=== PATIENT | female | born 2000 | race African-American/Black ===

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

== ENCOUNTER 2025-02-28 08:28 | Emergency (ER) | payer MEDICAID, SELFPAY ==
--- NOTE | ~2025-02-28 | US_ITS ---
EXAMINATION: US pelvic complete w TV, 02/28/2025 11:48 CDT HISTORY: abnormal CT, abdominal pain Comparison: Comparison CT previously obtained. Technique: Holloway-scale and color Doppler images were obtained. Findings: Uterus: Uterus anteverted 8.6 x 3.7 x 5.8 cm. . Endometrium measures 9 mm with a heterogeneous appearance. Right Ovary:Right ovary 2 x 2 0.8 x 1 x 1.7 cm, no adnexal mass, normal flow. Left Ovary: Left ovary 2.3 x 1.7 x 1.4 cm, no adnexal mass, normal flow. Free Fluid: Minimal free fluid. Incidental debris noted within the bladder, correlate with symptoms of cystitis. Impression: 1. Nonspecific heterogeneity of the endometrium. Six-week follow-up recommended to assess. Reviewed, dictated and finalized at location P. Impression: 1. Nonspecific heterogeneity of the endometrium. Six-week follow-up recommended to assess.
--- NOTE | ~2025-02-28 | CT_ITS ---
Exam: CT abdomen and pelvis with contrast Clinical History: [Abdominal pain. Vomiting. Elevated lipase ] Comparison: [ None available] Technique: Multiple axial CT images of the abdomen and pelvis were obtained with IV contrast. Sagittal and coronal reformatted images were obtained. FINDINGS: Lung bases: [ ] Liver: [ No mass.] [ No intrahepatic biliary duct dilatation.] Gallbladder: [ No wall thickening or stones.] Common bile duct: [ Normal caliber.] [ No stones.] Spleen: [ Within normal limits.] Pancreas: [ No mass. No pancreatic fluid collection.] Adrenals: [ No masses.] Kidneys: [ No masses. No hydronephrosis.][ ] Lymph nodes: [ No adenopathy in the abdomen or pelvis.] Stomach, small bowel and colon: [ No bowel wall thickening or obstruction.] Moderate amount of stool. Peritoneum cavity: Small amount of fluid in the pelvis. Bladder: [ Unremarkable.] Osseous structures: [ No acute fracture or destructive lesion.] [ Abdominal aorta: [ No aneurysm.] Additional findings: There is a fluid in the endometrial canal. There is a 3.2 x 2.4 cm heterogeneous masslike structure in the lower uterine segment which extends into the cervical region. IMPRESSION: 1. There is a fluid in the endometrial canal. There is a 3.2 x 2.4 cm heterogeneous masslike structure in the lower uterine segment which extends into the cervical region. The masslike structure may represent heterogeneous tissue, however, a mass or infectious process are possible. A pelvic ultrasound is recommended for further assessment. Reviewed, dictated and finalized at location Q. IMPRESSION: 1. There is a fluid in the endometrial canal. There is a 3.2 x 2.4 cm heterogen eous masslike structure in the lower uterine segment which extends into the cer vical region. The masslike structure may represent heterogeneous tissue, howeve r, a mass or infectious process are possible. A pelvic ultrasound is recommende d for further assessment.
--- OUTSIDE RECORDS SUMMARY | 2025-02-28 08:32 | XMS_ITS | Clinical Summary ---
Author Organization [facility] [address] [place] [address] [address] [facility] [place] [address] Care Team Providers Care Employment Instructional Associate Name Role Phone Unavailable Primary Care Provider Unavailabl e Allergies Active Allergy Reactions Criticality Noted Date Comments Amoxicillin Unknown,Other (See Comments),Rash Medium 06/11/2014 Mom doesn't remember reaction. Medications glycopyrrolate (ROBINUL) 1 mg tablet Take 1 Tablet by mouth 2 times daily. 07/01/2024 Active venlafaxine (EFFEXOR XR) 75 mg Extended Release 24 hour capsule Take 75 mg by mouth daily. 06/24/2024 Active Hospital, Clinic, or Other Facility Administered Medication Ordered Dose Route Frequency Start Date End Date Status medroxyPROGESTERone (DEPO-PROVERA) 150 mg/mL injection 150 mgIndications:Encounter for initial prescription of injectable contraceptive 150 mg IM EVERY 90 DAYS 08/22/2024 Active Active Problems Problem Noted Date Diagnosed Date Moderate episode of recurrent major depressive d isorder 03/14/2024 Overview (08/22/2024): Uncontrolled. She had failed Lexaprol and Zoloft due to side effects. Start Pristiq 25mg daily. Follow up in 1 month to reassess. Intractable migraine without aura and with status migrainosus 08/28/2022 Excessive sweating 02/15/2021 Overview (08/22/2024): Last Assessment & Plan: Stable Cont robinul Generalized anxiety disorder 01/09/2021 Overview (08/22/2024): Last Assessment & Plan: Worsening Increase lexapro to 20mg daily Acne 06/11/2014 Overview (08/22/2024): onset age 12, mild comedonal, forehead only, untreated 06/11/14 rec topical benzoyl peroxide 09/17/14 BP not started after last visit. Comedones now involve FH, nose and cheeks; start clinda/BP gel 12/17/2014 using BP ( Generalized hyperhidrosis 06/11/2014 Overview (08/22/2024): onset age 8, onychophagia and traumatic lichenification (R 1st and 2nd digits), associated anxiety (not evaluated) 01/13/14 Rx Drysol qhs to axillae and hands (2 bottles/2 mo) 06/11/14 restart Drysol BID to axillae/palms/soles, under occlusion pending lab evaluation 09/17/14 S/P Drysol + 1 mg glycopyrrolate BID X 2 mo without improvement (worst at axillary > palms); dose escalation and optimal topical application reviewed 12/17/14 using Drysol QHS + 3 mg glycopyrrolate BID with control; cautioned RE:overheating Family history of hyperhidrosis Encounters Date Type Department Care Team Description 02/18/2025 External Device Data [facility]STRACTION Provider, Abstract 12/18/2024 External Device Data [facility] Provider, Abstract 12/17/2024 External Device Data [facility] Provider, Abstract from Last 3 Months Immunizations Immunization Administration Dates Next Due (ADACEL/BOOSTRIX)(10 YR UP) TDAP VACCINE, 0.5ML, IM 01/13/2014 (BEXSERO)(10-25 YR) MENINGOC OCCAL RECOMBIANT PROTEIN AND OUTER MEMBRANE VESICLE VACCINE, SEROGROUP B MENB-4C, 2 DOSE IM 03/30/2020,02/28/2020 (GARDASIL)(9-45 YRS) HUMAN PAPILLOMAVIRUS VACCINE, TYPES 6, 11, 16, 18, QUADRIVALENT (4VHPV), 3 DOSE, IM 07/25/2014,03/17/2014,01/13/2014 (HAVRIX/VAQTA)(12 MO-18 YRS) HEPATITIS A VACCINE 0.5 ML PED/ADOL 2 DOSE, IM 10/25/2007,12/24/2004 (INFANRIX)(6 WKS-6 YRS) DIPT HERIA, TETANUS TOXOIDS, AND ACCELLULAR PERTUSSIS VACCINE (DTAP), 0.5 ML IM 10/04/2007 (IPOL)(6 WKS AND UP) POLIOVI ANSHUL VACCINE, INACTIVATED (IPV), 3 DOSE, SUBCUT OR IM 10/04/2007 (KINRIX/QUADRACEL)(4 - 6 YRS ) DIPHTHERIA, TETANUS TOXOIDS AND ACELLULAR PERTUSSIS VACCINE, POLIO, INACTIVATED (DTAP-IPV) (PF) IM 10/04/2007,06/10/2003,03/10/2003,01/07 (M-M-R II/PRIORIX)(12 MO UP) MEASLES, MUMPS AND RUBELLA VIRUS VACCINE, 0.5 ML IM/SUBCUT 10/04/2007,03/18/2004 (MENACTRA)(9 MO-55 YR) MENIN GOCOCCAL POLYSACCHARIDE A, C, Y AND W-135 DIPTHERIA TOXOID CONJUGATE VACCINE, (PF), 0.5ML, IM 02/28/2020,01/13/2014 (PEDIARIX)(6 WKS-6 YRS) DIPT HERIA, TETANUS TOXOIDS, ACELLULAR PERTUSSIS, HEPATITIS B, AND INACTIVATED POLIOVIRUS VACCINE (GVPM-KDAL-JRN), 0.5ML, IM 06/10/2003,03/10/2003,01/07/2003 (PREVNAR 13)(6 WKS UP) PNEUM OCOCCAL CONJUGATE (PCV13) 0.5 ML, IM 03/18/2004 (RECOMBIVAX HB/ENGERIX-B)(0- 19 YRS) HEPATITIS B VACCINE 5 MCG/0.5 ML OR 10 MCG/0.5 ML PED OR ADOL 3 DOSE (PF), IM 06/10/2003,03/10/2003,01/07/2003,11/14 (VARIVAX)(12 MOS UP)VARICELL A VIRUS VACCINE (PF) 0.5 ML, SUB CUT 07/17/2012,03/18/2004 Diptheria, Tetanus Toxoids, And Whole Cell Pertussis Vaccine (DTP), for intramuscular use 12/24/2004 HIB, Unspecified Formulation 03/18/2004, 06/10/2003,03/10/2003,01/07 Hemophilus influenza b vacci ne (Hib), PRP-D conjugate, for booster use only, intramuscular use 03/18/2004 INFLUENZA VACCINE QUADRIVALE NT 6 MOS UP PF IM 03/12/2020,04/15/2015,03/17/2014,04/29 Influenza Seasonal Unspecifi ed Formulation PF IM 03/14/2024 Influenza Vaccine Quad Split 6-35 Mo Pf Im 04/19/2004,03/18/2004 Influenza Virus Vaccine, Spl it Virus (Incl. Purified Surface antigen)-retired CODE 03/18/2010,04/19/2004,03/18/2004 Influenza, Unspecified Formulation 03/05/2022, Pneumococcal 7-valent conjug ate vaccine IM 03/18/2004,06/10/2003,03/10/2003,01/07 Social History Tobacco Use Types Packs/Day Years Used Date Smoking Tobacco: Never Smokeless Tobacco: Never Tobacco Cessation:Counseling Given: Not Answered Alcohol Use Standard Drinks/Week Comments Yes 0 (1 standard drink = 0.6 oz pur e alcohol) Comments No Sex and Gender Information Value Date Recorded Sex Assigned at Not on file Legal Sex Female 10:20 AM CDT Gender Identity Not on file Sexual Orientation Not on file Last Filed Vital Signs Vital Sign Reading Time Taken Comments Blood Pressure 119/67 08/22/2024 1:55 PM CDT Pulse 79 08/22/2024 1:55 PM CDT Temperature 36.1 C (97 F) 08/22/2024 1:55 PM CDT Respiratory Rate 18 08/22/2024 1:55 PM CDT Oxygen Saturation 99% 08/22/2024 1:55 PM CDT Inhaled Oxygen Concentration - - Weight 57.6 kg (127 lb) 08/22/2024 1:55 PM CDT Height 162.6 cm (5' 4) 08/22/2024 1:55 PM CDT Body Mass Index 21.8 08/22/2024 1:55 PM CDT Plan of Treatment Health Maintenance Due Date Last Done Comments CHLAMYDIA SCREENING (ANNUAL) 11-24 YEARS 2013 HPV/Cotest (21-29) 11/11/2023 DTAP/TDAP/TD VACCINES (7 - T d or Tdap) 01/14/2024 01/13/2014, 10/04/2007, 10/04/2007, Additional history exists INFLUENZA VACCINE (#1) 2025 , 03/12/2020, 04/15/2015, Additional history exists COVID-19 Vaccine (2024-07 6 season) 2025 09/22/2020, 08/30/2020 CERVICAL CANCER SCREENING 08/23/2027 PAP SMEAR 08/23/2027 08/22/2024 HEPATITIS B VACCINES Completed 06/10/2003, 06/10/2003, 03/10/2003, Additional history exists HPV VACCINES Completed 07/25/2014, 03/05, 01/13/2014 Procedures Procedure Name Priority Date/Time Associated Diagnosis Comments CERV/VAG CYTO AGE BASED SCREEN PAP W CT/NG, TRICH Routine 08/22/2024 11:28 AM CDT Well woman exam with routine gynecological exam from Last 3 Months or Most Recently Relevant to Health Maintenance Results * CERV/VAG CYTO AGE BASED SCREEN PAP W CT/NG, TRICH (08/22/2024 11:28 AM CDT) PAP INTERP See Scanned Report 08/29/2024 8:58 AM CDT [facility] [employer] [facility] Genital SWAB OF ENDOCERVIX / Unknown Collection / Unknown 08/22/2024 11:28 AM CDT 08/23/2024 11:28 AM CDT Kristina Babin WINDSHIELD TECHNICIAN PATHOLOGY/CYTOLOGY ORD ERABLES Final Result [facility] [employer] [facility] [id number] [address] [place] [address] from Last 3 Months or Most Recently Relevant to Health Maintenance Insurance [facility] [employer] OF [facility] [place] [id number] [facility] [address] [facility] [id number]
--- OUTSIDE RECORDS SUMMARY | 2025-02-28 08:32 | XMS_ITS | Encounter Summary ---
Author Organization [facility] Address [address] [place] [address] Care Team Providers Care Nursing Scheduler Name Role Phone Brigid Mcknight MD Primary Care Provider [phone] Encounter Details Date Type Department Care Team (Late st Contact Info) Description 02/14/2025 Results Follow-Up [facility] Family Medicine [address] [place] [address] [place] [address] [place] [address] [address] [place] [address] Trichomonas vaginalis PCR Vaginal, N. gonorrhoeae/C. trachomatis Amplification Vaginal, Vaginitis panel Vaginal Social History Tobacco Use Types Packs/Day Years Used Date Smoking Tobacco: Never Smokeless Tobacco: Never Alcohol Use Standard Drinks/Week Comments Yes 0 (1 standard drink = 0.6 oz pur e alcohol) PHQ-2 Answer Date Recorded PHQ-2 Total Score (If total score is 3 or more points, staff should administer the PHQ-9) 3 02/13/2025 PHQ-9 Answer Date Recorded PHQ-9 Total Score 15 02/13/2025 AUDIT-C Answer Date Recorded Q1: How often do you have a drink containing alc ohol? Monthly or less 02/13/2025 Q2: How many drinks containi ng alcohol do you have on a typical day when you are drinking? 1 or 2 02/13/2025 Q3: How often do you have si x or more drinks on one occasion? Never 02/13/2025 Comments Unknown Sex and Gender Information Value Date Recorded Sex Assigned at Not on file Legal Sex Female 4:15 PM CARGO SERVICES COORDINATOR Gender Identity Not on file Sexual Orientation Not on file documented as of this encounter Ordered Prescriptions Prescription Sig Dispense Quantity Refills Last Filled Start Date End Date metroNIDAZOLE (FLAGYL) 500 mg tablet Take 1 tablet (500 mg total) by mouth 2 (two) times a day for 7 days 14 tablet 02/14/2025 02/21/2025 documented in this encounter Plan of Treatment Not on file documented as of this encounter Visit Diagnoses Not on filedocumented in this encounter Care Teams Nursing Scheduler Relationship Specialty Start Date End Date Brigid Mcknight MD PCP - General Family Medicine 01/04/21 documented as of this encounter
--- OUTSIDE RECORDS SUMMARY | 2025-02-28 08:32 | XMS_ITS | Clinical Summary ---
Author Organization [facility] Address [address] [place] [address] Care Team Providers Care Interior Systems Carpenter Name Role Phone Laury Ybarra MD Primary Care Provider [phone] Source Comments [facility],non-owned Affiliates and Associated Physician Practices is amultiple site organization consisting of ambulatory clinics and hospital sitesin [place], [place], [place] and [place]. This disclosure is being madepursuant to the Care Everywhere program and may not contain all information available regarding this patient. Last updated 18.[facility] Allergies Active Allergy Reactions Criticality Noted Date Comments Amoxicillin Other 06/11/2014 Mom doesn't remember reaction. Medications * Be aware that medications may not be up to date on this document. Alwaysverify current medications with the patient. albuterol (PROVENTIL;PAIGE TOLIN) (2.5 MG/3ML) 0.083% nebulizer solution Inhale by mouth 4 times daily as needed for Shortness of Breath or Wheezing. Active albuterol HFA (PROVENTIL;PAIGE TOLIN;PROAIR) 108 (90 BASE) MCG/ACT inhaler Inhale 2 Puffs by mouth every 6 hours as needed. Active cetirizine (ZYRTEC) 10 MG chew tablet Take 10 mg by mouth once daily. Active acetaminophen (TYLENOL) 325 MG tablet Take 325 mg by mouth every 4 hours as needed for Fever or Pain. Maximum allowable Acetaminophen amount = 4 Grams (4000 mg) / 24 hours. Active fluticasone hfa 110 (FLOVENT HFA 110) 110 MCG/ACT inhaler Inhale 2 Puffs by mouth 2 times daily Active Active Problems Problem Noted Date Diagnosed Date Generalized hyperhidrosis 06/11/2014 Overview (12/17/2014): onset age 8, onychophagia and traumatic lichenification [...] control; cautioned RE:overheating Family history of hyperhidrosis Acne 06/11/2014 Overview (12/17/2014): onset age 12, mild comedonal, forehead only, untreated 06/11/14 rec topical benzoyl peroxide 09/17/14 BP not started after last visit. Comedones now involve FH, nose and cheeks; start clinda/BP gel 12/17/2014 using BP ( Family History Medical History Relation Name Comments Other Father increased sweat ing Type 2 Diabetes Mellitus Maternal Aunt Type 2 Diabetes Mellitus Maternal Grandmother Birthmarks Mother Type 2 Diabetes Mellitus Mother Asthma Sister Relation Name Status Comments Father Maternal Aunt Maternal Grandmother Mother Sister Social History Tobacco Use Types Packs/Day Years Used Date Smoking Tobacco: Never Smokeless Tobacco: Never Comments No Sex and Gender Information Value Date Recorded Sex Assigned at Not on file Legal Sex Female 5:42 AM JORDAN MAN Gender Identity Not on file Sexual Orientation Not on file Last Filed Vital Signs Vital Sign Reading Time Taken Comments Blood Pressure 122/64 02/24/2020 2:08 PM CDT Pulse 94 02/24/2020 2:08 PM CDT Temperature 36.7 C (98.1 F) 02/24/2020 2:08 PM CDT Respiratory Rate 20 02/24/2020 2:08 PM CDT Oxygen Saturation 98% 02/24/2020 2:08 PM CDT Inhaled Oxygen Concentration - - Weight 60.3 kg (133 lb) 02/24/2020 2:08 PM CDT Height 170.2 cm (5' 7) 02/24/2020 2:08 PM CDT Body Mass Index 20.83 02/24/2020 2:08 PM CDT Plan of Treatment Health Maintenance Due Date Last Done Comments HIV SCREENING 2017 HPV VACCINE (1 - 3-dose series) 2017 CHLAMYDIA/GONORRHEA SCREENING 2018 MENINGOCOCCAL (Group B) VACC INE SHARED DECISION-MAKING (1 of 2 - Standard) 2018 HEPATITIS C SCREENING 11/05/2020 DTAP/TDAP/TD VACCINES (1 - Tdap) 2021 HEPATITIS B VACCINE (1 of 3 - 19+ 3-dose series) 2021 DEPRESSION SCREENING 06/05/2024 COVID-19 VACCINE (1 - 2023-2 5 season) 2025 INFLUENZA VACCINE (#1) 2025 ZOSTER VACCINE (1 of 2) 2052 HIB VACCINE Aged Out No longer eligi ble based on patient's age to complete this topic MENINGOCOCCAL GROUPS A/C/Y/W VACCINE Aged Out No longer eligible b ased on patient's age to complete this topic PNEUMOCOCCAL VACCINE Aged Out No long er eligible based on patient's age to complete this topic Insurance [facility] Care Teams Interior Systems Carpenter Relationship Specialty Start Date End Date Laury Ybarra MD [address] [place] [address] PCP - General 10/04/21
--- OUTSIDE RECORDS SUMMARY | 2025-02-28 08:32 | XMS_ITS | Clinical Summary ---
Author Organization [facility] Address [address] [place] [address] Care Team Providers Care Inside Tester Name Role Phone Brigid Mcknight MD Primary Care Provider [phone] Allergies Active Allergy Reactions Criticality Noted Date Comments Amoxicillin Rash Medium 01/09/2021 Medications Nurtec ODT tablet,disinteg ratingIndicatio ns:Migraine without aura and without status migrainosus, not intractable Take 1 tablet (75 mg total) by mouth every other day as needed (migraine) 8 tablet 5 3 Active albuterol HFA (PROVENTIL HFA,VENTOLIN HFA,PROAIR HFA) 90 mcg/actuation inhalerIndicati ons:Acute non-recurrent frontal sinusitis,Wheez ing Inhale 1-2 puffs every 6 (six) hours as needed for wheezing for up to 10 days 8 g 3 5 Active loratadine (CLARITIN) 10 mg tablet Take 1 tablet (10 mg total) by mouth daily as needed Active desvenlafaxine ER (PRISTIQ) 25 mg tablet extended release 24 hr 24 hr tabletIndicatio ns:major depressive disorder Take 1 tablet (25 mg total) by mouth daily 30 tablet 5 Active glycopyrrolate (ROBINUL) 1 mg tabletIndicatio ns:Excessive sweating Take 1 tablet (1 mg total) by mouth 2 (two) times a day 180 tablet 5 Active hydrOXYzine (ATARAX) 10 mg tabletIndicatio ns:Generalized anxiety disorder Take 1 tablet (10 mg total) by mouth daily as needed for itching 30 tablet 5 Active hydrOXYzine (ATARAX) 10 mg tabletIndicatio ns:Generalized anxiety disorder Take 1 tablet (10 mg total) by mouth daily as needed for itching 30 tablet 4 02/14/20 25 Discontinue d(Reorder) venlafaxine XR (EFFEXOR-XR) 75 mg 24 hr capsuleIndicati ons:Generalized anxiety disorder Take 1 capsule (75 mg total) by mouth daily Take with food. 90 capsule 4 5 02/14/20 25 Discontinue d(Alternate therapy) glycopyrrolate (ROBINUL) 1 mg tabletIndicatio ns:Excessive sweating Take 1 tablet (1 mg total) by mouth 2 (two) times a day 180 tablet 5 02/14/20 25 Discontinue d(Reorder) metroNIDAZOLE (FLAGYL) 500 mg tablet Take 1 tablet (500 mg total) by mouth 2 (two) times a day for 7 days 14 tablet 5 02/22/20 25 Active Problems Problem Noted Date Diagnosed Date Intractable migraine without aura and with status migrainosus 06/24/2024 Assessment & Plan (06/24/2024 12:21 PM CARDIOLOGY SPECIALIST): Chronic Stable Cont nurtec PRN Moderate episode of recurrent major depressive d isorder 03/14/2024 Overview (03/14/2024): Uncontrolled. She had failed Lexaprol and Zoloft due to side effects. Start Pristiq 25mg daily. Follow up in 1 month to reassess. Assessment & Plan (06/24/2024 12:26 PM CARDIOLOGY SPECIALIST): Chronic Improving Increase venlafaxine xr to 75mg daily Failed meds: zoloft, lexapro Excessive sweating 02/15/2021 Assessment & Plan (06/24/2024 12:20 PM CARDIOLOGY SPECIALIST): Chronic Stable Cont robinul Assessment & Plan (02/24/2022 6:18 AM CDT): Stable Cont robinul Assessment & Plan (12/16/2021 10:09 AM CDT): Stable Cont robinul Assessment & Plan (09/28/2021 1:28 PM CDT): Stable Cont robinul Assessment & Plan (02/23/2021 5:22 PM CDT): Chronic, uncontrolled Start robinul Generalized anxiety disorder 01/09/2021 Assessment & Plan (06/24/2024 12:21 PM CARDIOLOGY SPECIALIST): Chronic Improving Increase venlafasine to 75mg daily Failed meds: lexapro, zoloft Cont hydroxyzine prn Assessment & Plan (12/16/2021 10:08 AM CDT): Worsening Increase lexapro to 20mg daily Assessment & Plan (09/28/2021 1:28 PM CDT): Stable Cont lexapro Assessment & Plan (02/23/2021 5:22 PM CDT): Stable Cont lexapro Assessment & Plan (01/09/2021 10:23 AM CDT): Uncontrolled Start lexapro Resolved Problems Problem Noted Date Diagnosed Date Resolved Date Dizziness 12/16/2021 03/14/2024 Assessment & Plan (02/24/2022 6:18 AM CDT): Uncontrolled Start meclizine Start PT Nasal congestion 12/16/2021 03/14/2024 Nasal drainage 09/28/2021 03/14/2024 Assessment & Plan (09/28/2021 1:27 PM CDT): New Order flonase, singulair Encounters Date Type Department Care Team Description 02/14/2025 Results Follow-Up [facility] Family Medicine [address] [place] [address] [place] [id number] Tasneem Mccoy NP Trichomonas vaginalis PCR Vaginal, N. gonorrhoeae/C. trachomatis Amplification Vaginal, Vaginitis panel Vaginal 02/13/2025 4:27 PM CDT - 02/13/2025 11:59 PM CDT Hospital Encounter [facility] [address] [place] [address] Vaginal odor; Vaginal discharge Discharge Disposition: Discharge to home or self care 02/13/2025 9:30 AM CDT Office Visit [facility] Family Medicine [address] [facility] [address] [place] [address] Tasneem Mccoy NP Vaginal odor (Primary Dx); Vaginal discharge; Generalized anxiety disorder; Moderate episode of recurrent major depressive disorder (HCC); Excessive sweating; Generalized anxiety disorder; Chronic bilateral low back pain without sciatica; Chronic bilateral thoracic back pain; control counseling from Last 3 Months Immunizations Immunization Administration Dates Next Due DTP 12/24/2004 DTaP 10/04/2007 DTaP / Hep B / IPV 06/10/2003,03/10/2003, 003 DTaP / IPV 10/04/2007, 4,03/10/2003,01/07 HPV, Quadrivalent 07/25/2014,03/17/2014,01/14/20 14 Hep A, Pediatric 10/25/2007,12/24/2004 Hep A, Unspecified 12/24/2004 Hep B, Adolescent or Pediatric 4,03/10/2003,01/07/2003,11/14 HiB 03/18/2004, 4,03/10/2003,01/07 Hib (PRP-D) 03/18/2004 IPV 10/04/2007 Influenza, Quadrivalent, Spl it, Pediatric, Preservative Free, Intramuscular 04/19/2004,03/18/2004 Influenza, Quadrivalent, Spl it, Preservative Free, Intramuscular 03/12/2020,04/15/2015,03/17/2014,04/29 Influenza, Split 03/18/2010,04/19/2004, 4 Influenza, Trivalent, Preser vative Free, Intramuscular 03/14/2024 Influenza, Unspecified 03/05/2023(Deferr ed: Patient Refused),03/05/2022,03/05/2021 MMR 10/04/2007,03/18/2004 Meningococcal B, OMV (Bexsero) 03/30/2020,2019 Meningococcal MCV4P (Menactra) 02/28/2020,2013 Pfizer SARS-CoV-2 Monovalent Vaccination (12+ Yrs) PURPLE 09/22/2020,08/30/2020 Pneumococcal Conjugate 7-Valent 03/18/20 04,06/10/2003,03/10/2003,01/07 Pneumococcal Conjugate PCV 13 03/18/2004 Tdap 01/13/2014 Varicella 07/17/2012,03/18/2004 Surgical History Surgery Date Site/Laterality Comments FINGER SURGERY extra finger on both hands removed as baby Medical History Medical History Date Comments Depression Anxiety Family History Medical History Relation Name Comments Heart disease Father Martinez Reddy Diabetes Mother Elmira Brown Relation Name Status Comments Father Martinez Reddy Alive Mother Elmira Brown Alive Social History Tobacco Use Types Packs/Day Years [...] on file Legal Sex Female 4:15 PM CARDIOLOGY SPECIALIST Gender Identity Not on file Sexual Orientation Not on file Obstetrics History Last Filed Vital Signs Vital Sign Reading Time Taken Comments Blood Pressure 100/68 02/13/2025 9:18 AM CDT Pulse 89 02/13/2025 9:18 AM CDT Temperature 36.7 C (98 F) 02/13/2025 9:18 AM CDT Respiratory Rate 16 03/14/2024 12:52 PM CDT Oxygen Saturation 99% 02/13/2025 9:18 AM CDT Inhaled Oxygen Concentration - - Weight 57.2 kg (126 lb 3.2 oz) 02/13/2025 9:18 A M CDT Height 165.1 cm (5' 5) 02/13/2025 9:18 AM CDT Body Mass Index 21 02/13/2025 9:18 AM CDT Plan of Treatment Health Maintenance Due Date Last Done Comments Cervical Cancer Screening 2002 Hepatitis C Screening 2002 Pneumococcal vaccine <65 (1 of 1 - PPSV23, PCV20, or PCV21) 2008 03/18/2004, 03/18/2004, 06/10/2003, Additional history exists DTaP/Tdap/Td Vaccine (7 - Td or Tdap) 01/14/2024 01/13/2014, 10/04/2007, 10/04/2007, Additional history exists Covid-19 Vaccine (3 - 2024-2 6 season) 2025 09/22/2020, 08/30/2020 Influenza Vaccine (#1) 2025 , 03/05/2022, 03/05/2021, Additional history exists Regular Well Visit/Exam 18-64 03/14/2025 03/14/2024 Depression Screening 02/13/2026 02/13/2025, 02/13/2025, 03/14/2024, Additional history exists Hepatitis B Screening Completed 06/10/2003 , 06/10/2003, 03/10/2003, Additional history exists Varicella Vaccines Completed 07/17/2012, 03/18/2004 HPV Vaccines Completed 07/25/2014, 03/05, 01/13/2014 Meningococcal B Vaccine Completed 03/30/2020, 02/27 Procedures Procedure Name Priority Date/Time Associated Diagnosis Comments VAGINITIS PANEL Routine 02/13/2025 9:47 AM CDT Vaginal odor Vaginal discharge N. GONORRHOEAE/C. TRACHOMATIS AMPLIFICATION Routine 02/13/2025 9:47 AM CDT Vaginal odor Vaginal discharge TRICHOMONAS VAGINALIS PCR Routine 02/13/2025 9:47 AM CDT Vaginal odor Vaginal discharge from Last 3 Months Results * N. gonorrhoeae/C. trachomatis Amplification Vaginal (02/13/2025 9:47 AM CDT) C. trachomatis Not Detected [facility] Comment:Testing performed by : [facility], [address] [place] [address]., [id number] N. gonorrhoeae Not Detected [facility] Comment: Interpretive Data This assay detects Chlamydia trachomatis and Neisseria gonorrhoeae by nucleic acid amplification testing (NAAT). This assay has been cleared by the [place] Food and Drug administration. The performance characteristics of this test have been verified by the [facility] Molecular Infectious Disease laboratory. The performance characteristics of this test have not been evaluated in individuals less than 14 years of age. Current Interpretive Data was last revised on 2023. Testing performed by: [facility], [address] [place]., [address] Vaginal 02/13/2025 9:47 AM CDT 02/13/2025 7:58 PM CDT Tasneem Mccoy NP LAB MICROBIOLOGY - GENERAL MELINA SCHAFER Final Result [facility] [address] [facility] Department [place] [address] [facility] * Trichomonas vaginalis PCR Vaginal (02/13/2025 9:47 AM CDT) Trichomonas DNA Not Detected [facility] Comment: Interpretive Data This assay detects Trichomonas vaginalis by nucleic acid amplification testing (NAAT). This assay has been cleared by the [place] Food and Drug administration. The performance characteristics of this test have been verified by the [facility] Molecular Infectious Disease laboratory. The performance of this test has not been evaluated in individuals less than 18 years of age. Current Interpretive Data was last revised on 2023. Testing performed by: [facility], [address] [place]., [address] Vaginal 02/13/2025 9:47 AM CDT 02/13/2025 7:58 PM CDT Tasneem Mccoy NP LAB MICROBIOLOGY - GENERAL ORDE RABLALITA Final Result Performing Organization Address City/[facility]/ZIP Co de Phone Number [facility] [address] [facility] [place] [address] [facility] * (ABNORMAL) Vaginitis panel Vaginal (02/13/2025 9:47 AM CDT) Pathologist [facility] Bacterial Vaginosis Detected(A) Not Detected Comment:The BV organism targ ets of this test can be commensal in women; results should be considered in conjunction with clinical presentation to determine the disease status. Lasahnda group Not Detected Not Detected [facility] Lashanda glabrata/ krusei Not Detected Not Detected [facility] Trichomonas DNA Not Detected Not Detected [facility] Vaginal 02/13/2025 9:4 7 AM CDT 02/13/2025 5:18 PM CDT Narrative [facility] - 02/13/2025 6:23 PM CDT The [employer] Xpert Xpress MVP test detects DNA targets from anaerobic bacteria associated with bacterial vaginosis, Lashanda species associated with vulvovaginal candidiasis, and Trichomonas vaginalis by nucleic acid amplification testing (NAAT). Results should be interpreted in conjunction with other clinical data. This test cannot be used to assess therapeutic success or failure because target nucleic acids may persist following antimicrobial therapy. This test has been cleared by the [place] Food and Drug Administration to aid in the diagnosis of vaginal infections in symptomatic women ages 14 and older. The performance characteristics of this test have been verified by the [facility]. Tasneem Mccoy NP LAB MICROBIOLOGY - GENERAL ORDE RABLALITA Final Result Performing Organization Address City/[facility]/ZIP Co de Phone Number [facility] [address] [facility] [place] [address] from Last 3 Months Insurance [facility] Care Teams Inside Tester Relationship Specialty Start Date End Date Brigid Mcknight MD PCP - General Family Medicine 01/04/21
--- NOTE | 2025-02-28 08:33 | PC.NURSE ---
RN contacted infection prevention nurse d/t pt's symptoms and recent travel to [facility]. She reports there are no current travel advisories at this time for the
[2025-02-28 08:37] VITALS: BP 131/90; PULSE 102; RESP 16; TEMP 36.4; O2SAT 100
[2025-02-28 09:46] LABS: BEDSIDEPREGUCG Negative (Negative)
[2025-02-28 09:47] LABS: Hematocrit 48.3 % (37.0-47.0); Hemoglobin 15.6 g/dL (12.0-15.0); Immature Granulocyte Percent A 0.3 % (0-0.5); Lymphocytes Absolute Auto 1.27 K/mm3 (0.9-3.2); Mean Corpuscular HGB Conc 32.3 g/dl (32-36); Mean Corpuscular Hemoglobin 28.5 pg (26-34); Mean Corpuscular Volume 88.3 fl (80-100); Nucleated Red Blood Cells Absolute Auto 0.000 K/mm3 (0.0-0.012); Nucleated Red Blood Cells Perc 0.0 % (0.0-0.2); Platelet Count Result 287 k/mm3 (150-375); Red Blood Count 5.47 M/mm3 (4.2-5.4); White Blood Count 7.1 K/mm3 (4.5-10.0)
[2025-02-28 09:51] LABS: Add Urine Microscopic? YES; Appearance Urine Cloudy (Clear); Glucose Urine UA Negative (Negative); Leukocyte Esterase Ur Trace LEU/UL (Negative); Nitrate Urine Negative (Negative); Non Pathogenic Casts 0-2; Specific Grav Ur 1.025 (1.001-1.035)
[2025-02-28 09:59] LABS: Alanine Aminotransferase 23 U/L (6-35); Albumin Level 4.8 g/dL (3.5-5.1); Alkaline Phosphatase 88 U/L (38-126); Anion Gap 10 mmol/L (4-12); Aspartate Amino Transferase 31 U/L (14-36); Bilirubin,Total 0.8 mg/dL (0.2-1.3); Blood Urea Nitrogen 10 mg/dL (7-17); Calcium 10.0 mg/dL (8.4-10.2); Carbon Dioxide 24 mmol/L (22-30); Chloride 105 mmol/L (98-107); Estimated CRCL calculation 89 ml/min; Estimated Glomerular Filt Rate > 60; Glucose 94 mg/dL (65-110); Lipase 646 U/L (23-300); Potassium 3.8 mmol/L (3.4-5.0); Sodium 139 mmol/L (137-145); Total Protein 9.2 g/dL (6.3-8.2)
--- NOTE | 2025-02-28 10:19 | ED.ABDPAIN ---
HPI - Abdominal Pain General Chief Complaint: Abdominal Pain Stated Complaint: abdominal pain Time Seen by Provider: 02/28/25 09:11 Source: patient Mode of arrival: ambulatory Limitations: no limitations History of Present Illness HPI narrative: This is a 24-year-old female that presents to the emergency department for upper abdominal pain. Ongoing over the last week. Worse with eating. Reports associated nausea, diarrhea. Denies fevers. Related Data Home Medications ?Medication ?Instructions ?Recorded ?Confirmed ?Last Taken ?Type albuterol sulfate 90 mcg/actuation 1 inh inhalation QID PRN Adequate 04/19/19 08/01/19 Unknown History aerosol inhaler Ventilation levonorgestrel-ethinyl estradiol 1 tablet PO DAILY 04/19/19 08/01/19 Unknown History 0.1 mg-20 mcg tablet (Aviane) Allergies Allergy/AdvReac Type Severity Reaction Status Date / Time amoxicillin Allergy Intermediate Hives Verified 02/28/25 10:49 Review of Systems Review of Systems: All systems reviewed & are unremarkable except as noted in HPI and below PMFSH Past Medical History Medical History (Updated 02/28/25 @ 14:11 by Altagracia Greene PA-C) Anxiety Depression Surgical History Surgical History (Updated 12/15/21 @ 20:47 by Lyle Bennett MD) No pertinent past surgical history Social History Social History (Updated 12/15/21 @ 20:47 by Lyle Bennett MD) Smoking status: Never smoker Substance use type: marijuana Exam Narrative: GENERAL: Well-appearing, well-nourished, and in no acute distress. HEAD: Normocephalic, atraumatic. EYES: EOMI. CHEST: Clear to auscultation. No respiratory distress. No wheezes rales or rhonchi HEART: Regular rate and rhythm. No murmur heard. Normal peripheral pulses. ABDOMEN: Soft, nondistended, normal active bowel sounds. Tender to palpation in the epigstrium, without guarding EXTREMITIES: Normal range of motion. No edema. SKIN: Warm, dry, no rash. NEURO: No focal deficits. Alert and oriented x3. PSYCH: Normal mood and affect Course Course Emergency Course: Patient updated on her workup. We spoke about further inpatient management versus close follow-up outpatient. Patient wishes to be discharged at this time Vital Signs Vital signs: Vital Signs Temperature 97.6 F 02/28/25 08:37 Pulse Rate 102 H 02/28/25 08:37 Respiratory Rate 16 02/28/25 08:37 Blood Pressure 131/90 02/28/25 08:37 Pulse Oximetry 100 02/28/25 08:37 Oxygen Delivery Room Air 02/28/25 08:37 Temperature 97.6 F 02/28/25 08:37 Pulse Rate 88 02/28/25 13:00 Respiratory Rate 18 02/28/25 13:00 Blood Pressure 118/78 02/28/25 13:00 Pulse Oximetry 100 02/28/25 13:00 Oxygen Delivery Room Air 02/28/25 08:37 MDM - Abdominal Pain MDM Narrative Medical decision making narrative: Patient presents the emergency department for upper abdominal pain. Ongoing over the last week. She is afebrile and nontoxic appearing. Tachycardic upon arrival, this normalized with IV fluids. Cbc without leukocytosis. Does show hemoconcentration. Metabolic panel without concerning findings. Lipase is mildly elevated. Urine without evidence of infection. test negative. CT abdomen and pelvis shows heterogenous endometrium, pelvic ultrasound recommended. Pelvic ultrasound once again shows heterogenous endometrium, mild free fluid in the pelvis. Patient updated on her workup. We spoke about further inpatient management versus close follow-up outpatient. Patient wishes to be discharged at this time. She was given strict return precautions Differential Diagnosis Differential diagnosis: Likely constipation, diverticulitis, gastroenteritis, pancreatitis and other (biliary colic, ovarian cyst, UTI) Lab Data Attestation: I reviewed the patient's lab results. 02/28/25 09:40 02/28/25 09:39 Labs: Lab Results 02/28/25 02/28/25 02/28/25 Range/Units 09:39 09:40 09:45 WBC 7.1 (4.5-10.0) K/mm3 RBC 5.47 H (4.2-5.4) M/mm3 Hgb 15.6 H (12.0-15.0) g/dL Hct 48.3 H (37.0-47.0) % MCV 88.3 (80-100) fl MCH 28.5 (26-34) pg MCHC 32.3 (32-36) g/dl RDW 13.2 (11.5-14.5) % Plt Count 287 (150-375) k/mm3 MPV 9.2 (7.4-10.4) fl Immature Gran % (Auto) 0.3 (0-0.5) % Neut % (Auto) 73.4 H (45.5-73.1) % Lymph % (Auto) 18.0 L (18.3-44.2) % Alfalfa % (Auto) 6.1 (2.6-8.5) % Eos % (Auto) 1.8 (0-4.4) % Baso % (Auto) 0.4 (0.2-1.2) % Lymph # (Auto) 1.27 (0.9-3.2) K/mm3 Alfalfa # (Auto) 0.4 (0.1-0.6) K/mm3 Eos # (Auto) 0.1 (0-0.3) K/mm3 Baso # (Auto) 0.0 (0.0-0.1) K/mm3 Abs Immat Gran (auto) 0.02 (0.00-0.031) K/mm3 Absolute Neuts (auto) 5.2 (1.3-6.7) K/mm3 Absolute Nucleated RBC 0.000 (0.0-0.012) K/mm3 Nucleated RBC % 0.0 (0.0-0.2) % Sodium 139 (137-145) mmol/L Potassium 3.8 (3.4-5.0) mmol/L Chloride 105 (98-107) mmol/L Carbon Dioxide 24 (22-30) mmol/L Anion Gap 10 (4-12) mmol/L BUN 10 (7-17) mg/dL Creatinine 0.74 (0.7-1.0) mg/dL Estim Creat Clear Calc 89 ml/min Estimated GFR > 60 (59 - ) Glucose 94 (65-110) mg/dL Calcium 10.0 (8.4-10.2) mg/dL Total Bilirubin 0.8 (0.2-1.3) mg/dL AST 31 (14-36) U/L ALT 23 (6-35) U/L Alkaline Phosphatase 88 (38-126) U/L Total Protein 9.2 H (6.3-8.2) g/dL Albumin 4.8 (3.5-5.1) g/dL Lipase 646 H (23-300) U/L Urine Color Yellow (Yellow) Urine Appearance Cloudy H (Clear) Urine pH 8.0 (5.0-9.0) Ur Specific [place] 1.025 (1.001-1.035) Urine Protein 3+ H (Negative) mg/dL Urine Glucose (UA) Negative (Negative) mg/dL Urine Ketones Trace H (Negative) mg/dL Ur Blood (Man) Trace (Negative) Urine Nitrate Negative (Negative) Urine Bilirubin Negative (Negative) Urine Urobilinogen 0.2 (<2.0) mg/dL Leukocyte Esterase Rfl Trace H (Negative) COLIN/UL Urine RBC 6-10 H (0-2) /hpf Urine WBC 0-5 (0-3) /hpf Ur Squamous Epith Cells Moderate (Few) /hpf Urine Bacteria None seen /hpf Urine Casts 0-2 POC Urine HCG, Qual Negative (Negative) Imaging Data Radiologist's impression: ITS Impressions Abdomen/Pelvis CT 02/28/25 11:24 IMPRESSION: 1. There is a fluid in the endometrial canal. There is a 3.2 x 2.4 cm heterogeneous masslike structure in the lower uterine segment which extends into the cervical region. The masslike structure may represent heterogeneous tissue, however, a mass or infectious process are possible. A pelvic ultrasound is recommended for further assessment. Pelvic/Transvag US 02/28/25 13:15 Impression: 1. Nonspecific heterogeneity of the endometrium. Six-week follow-up recommended to assess. Critical Care Time Critical Care Time Critical Care Time: No Discharge Plan Discharge Clinical Impression: Free fluid in pelvis Pancreatitis Qualifiers: Chronicity: acute Pancreatitis type: unspecified pancreatitis type Acute pancreatitis complication: unspecified Qualified Code(s): K85.90 - Acute pancreatitis without necrosis or infection, unspecified Patient Disposition: Home Condition: Stable Instructions: Pancreatitis (ED), Clear Liquid Diet (ED) Additional Instructions: Return to the ER if you experience fever, abdominal pain with nausea and vomiting, you are unable to keep down liquids or solids, or any other symptoms that are concerning to you Rest. Remain well hydrated. Bkal-jse-iyrqisc pain medication as needed. Prescribed pain medication as needed. Liquid diet until your pain improves Follow up with your primary care doctor and electrical experimental mechanic The radiologist is recommending repeat ultrasound in about 6 weeks to make sure everything returns to normal. You had a little fluid in your pelvis Patient Language: Maori Prescriptions: New hydrocodone-acetaminophen 5-325 mg tablet 1 tablet PO Q6H PRN (Reason: pain) Qty: 20 0RF No Action levonorgestrel-ethinyl estrad [Aviane] 0.1-20 mg-mcg tablet 1 tablet PO DAILY albuterol sulfate 90 mcg/actuation Hfa Aerosol Inhaler 1 inh INHALATION QID PRN (Reason: Adequate Ventilation) cetirizine-pseudoephedrine [Zyrtec-D] 5-120 mg tablet extended release 12 hr 1 tablet PO Q12H PRN (Reason: nasal congestion) Qty: 12 0RF dextromethorphan-guaifenesin [Mucinex DM] 60-1,200 mg tablet extended release 12 hr 1 tablet PO Q12H PRN (Reason: cough) Qty: 12 0RF fluticasone propionate [Flonase Allergy Relief] 50 mcg/actuation spray,suspension 2 spray NASAL DAILY 14 Days Qty: 15.8 0RF Rx Instructions: administer into each nostril promethazine-DM 6.25-15 mg/5 mL syrup 5 ml PO Q4-6H PRN (Reason: cough) Qty: 120 0RF fluticasone propionate [Flonase Allergy Relief] 50 mcg/actuation spray,suspension 1 spray NASAL Q12H 10 Days Qty: 15.8 0RF Rx Instructions: administer into each nostril ibuprofen 600 mg tablet 600 mg PO TID Qty: 14 0RF Follow-up/Referrals: Joaquin Bridges MD [Physician, PRODUCT OWNER] Juan Luis,MD Brigid [Primary Care Provider] Stand Alone Forms: Work/School Release IP
--- OUTSIDE RECORDS SUMMARY | 2025-02-28 10:32 | XMS_ITS | Encounter Summary ---
Author Organization [facility] Address [address] [place] [address] Care Team Providers Care Fiberglass Autobody Repairer Name Role Phone Brigid Mcknight MD Primary Care Provider [phone] Encounter Details Date Type Department Care Team (Late st Contact Info) Description 02/14/2025 Results Follow-Up [facility] Family Medicine [address] [place] [address] Tasneem Mcc[place], [place] [address] [place] [address] [address] [place] [address] Trichomonas vaginalis PCR Vaginal, N. [...] on file Legal Sex Female 4:15 PM YARN HANDLER Gender Identity Not on file Sexual Orientation [...] on filedocumented in this encounter Care Teams Fiberglass Autobody Repairer Relationship Specialty Start Date End Date Brigid Mcknight MD PCP - General Family Medicine 01/04/21 documented as of this encounter
--- OUTSIDE RECORDS SUMMARY | 2025-02-28 10:32 | XMS_ITS | Clinical Summary ---
Author Organization [facility] Address [address] [place] [address] Care Team Providers Care Stock Mixer Name Role Phone Laury Ybarra MD Primary Care Provider [phone] Source Comments [facility],non-owned Affiliates and Associated Physician Practices is amultiple site organization consisting of ambulatory clinics and hospital sitesin [place], [place], [place] and [place]. This disclosure is being madepursuant to the Care Everywhere program and may not contain all information available regarding this patient. Last updated 18.[facility] Allergies Active Allergy Reactions Criticality Noted Date [...] on file Legal Sex Female 5:42 AM RN TRANSFER Gender Identity Not on file Sexual Orientation [...] patient's age to complete this topic Insurance [facility] Care Teams Stock Mixer Relationship Specialty Start Date End Date Laury Ybarra MD [address] [place] [address] PCP - General 10/04/21
--- OUTSIDE RECORDS SUMMARY | 2025-02-28 10:32 | XMS_ITS | Clinical Summary ---
Author Organization [facility] [place] [facility] Address [address] [place] [address] Care Team Providers Care Follow Up Manager Name Role Phone Brigid Mcknight MD Primary Care Provider [phone] Allergies Active Allergy Reactions Criticality Noted Date [...] 06/24/2024 Assessment & Plan (06/24/2024 12:21 PM LANDS RESOURCE MANAGER): Chronic Stable Cont nurtec PRN Moderate episode of recurrent major depressive d isorder 03/14/2024 Overview (03/14/2024): Uncontrolled. She had failed Lexaprol and Zoloft due to side effects. Start Pristiq 25mg daily. Follow up in 1 month to reassess. Assessment & Plan (06/24/2024 12:26 PM LANDS RESOURCE MANAGER): Chronic Improving Increase venlafaxine xr to 75mg daily Failed meds: zoloft, lexapro Excessive sweating 02/15/2021 Assessment & Plan (06/24/2024 12:20 PM LANDS RESOURCE MANAGER): Chronic Stable Cont robinul Assessment & Plan (02/24/2022 6:18 AM CDT): Stable Cont robinul Assessment & Plan (12/16/2021 10:09 AM CDT): Stable Cont robinul Assessment & Plan (09/28/2021 1:28 PM CDT): Stable Cont robinul Assessment & Plan (02/23/2021 5:22 PM CDT): Chronic, uncontrolled Start robinul Generalized anxiety disorder 01/09/2021 Assessment & Plan (06/24/2024 12:21 PM LANDS RESOURCE MANAGER): Chronic Improving Increase venlafasine to 75mg daily [...] Team Description 02/14/2025 Results Follow-Up [facility] Family Medicine [address] [place] [address] [place] [phone] Tasneem Mccoy NP Trichomonas vaginalis PCR Vaginal, N. gonorrhoeae/C. trachomatis Amplification Vaginal, Vaginitis panel Vaginal 02/13/2025 4:27 PM CDT - 02/13/2025 11:59 PM CDT Hospital Encounter [facility] [address] [place] [address] Vaginal odor; Vaginal discharge Discharge Disposition: Discharge to home or self care 02/13/2025 9:30 AM CDT Office Visit [facility] Family Medicine [address] [facility] [address] [place] [address] Tasneem Mccoy NP Vaginal odor (Primary Dx); [...] Relation Name Comments Heart disease Father Martinez eRddy Diabetes Mother Elmira Brown Relation Name Status [...] on file Legal Sex Female 4:15 PM LANDS RESOURCE MANAGER Gender Identity Not on file Sexual Orientation [...] 9:47 AM CDT) C. trachomatis Not Detected [facility] Comment:Testing performed by : [facility], [address] [place] [address]., [address] N. gonorrhoeae Not Detected [facility] Comment: Interpretive Data This assay detects Chlamydia trachomatis and Neisseria gonorrhoeae by nucleic acid amplification testing (NAAT). This assay has been cleared by the [place] Food and Drug administration. The performance characteristics of this test have been verified by the [facility] Disease laboratory. The performance characteristics of this test have not been evaluated in individuals less than 14 years of age. Current Interpretive Data was last revised on 2023. Testing performed by: [facility], [address] [place]., [address] Vaginal 02/13/2025 9:47 AM CDT 02/13/2025 7:58 PM CDT Tasneem Mccoy NP LAB MICROBIOLOGY - GENERAL MELINA SCHAFER Final Result [facility] [address] [facility] Department [place] [address] [facility] * Trichomonas vaginalis PCR Vaginal (02/13/2025 9:47 AM CDT) Trichomonas DNA Not Detected [facility] Comment: Interpretive Data This assay detects Trichomonas vaginalis by nucleic acid amplification testing (NAAT). This assay has been cleared by the [place] Food and Drug administration. The performance characteristics of this test have been verified by the [facility] laboratory. The performance of this test has not been evaluated in individuals less than 18 years of age. Current Interpretive Data was last revised on 2023. Testing performed by: [facility], [address] [place]., [address] Vaginal 02/13/2025 9:47 AM CDT 02/13/2025 7:58 PM CDT Tasneem Mccoy NP LAB MICROBIOLOGY - GENERAL ORDE RABLALITA Final Result Performing Organization Address City/[facility]/ZIP Co de Phone Number [facility] [address] [facility] [place] [address] [facility] * (ABNORMAL) Vaginitis panel Vaginal (02/13/2025 9:47 AM CDT) Pathologist [facility] Bacterial Vaginosis Detected(A) Not Detected Comment:The BV organism targ ets of this test can be commensal in women; results should be considered in conjunction with clinical presentation to determine the disease status. Lashanda group Not Detected Not Detected [facility] Lashanda glabrata/ krusei Not Detected Not Detected [facility] Trichomonas DNA Not Detected Not Detected [facility] Vaginal 02/13/2025 9:4 7 AM CDT 02/13/2025 5:18 PM CDT Narrative [facility] - 02/13/2025 6:23 PM CDT The [employer] Xpert Xpress MVP test detects DNA targets [...] this test have been verified by the [facility]. Tasneem Mccoy NP LAB MICROBIOLOGY - GENERAL ORDE RABLALITA Final Result Performing Organization Address City/[facility]/ZIP Co de Phone Number [facility] [address] [facility] [place] [address] from Last 3 Months Insurance [facility] Care Teams Follow Up Manager Relationship Specialty Start Date End Date Brigid Mcknight MD PCP - General Family Medicine 01/04/21
--- OUTSIDE RECORDS SUMMARY | 2025-02-28 10:32 | XMS_ITS | Clinical Summary ---
Author Organization [facility] [address] [place] [address] Address [address] [facility] [place] [address] Care Team Providers Care Product Developer Name Role Phone Unavailable Primary Care Provider [...] PERTUSSIS, HEPATITIS B, AND INACTIVATED POLIOVIRUS VACCINE ([id number]), 0.5ML, IM 06/10/2003,03/10/2003,01/07/2003 (PREVNAR 13)(6 WKS UP) [...] See Scanned Report 08/29/2024 8:[address] [facility] Genital SWAB OF ENDOCERVIX / Unknown Collection / Unknown 08/22/2024 11:28 AM CDT 08/23/2024 11:28 AM CDT Kristina Babin TIRE MOLD TESTER PATHOLOGY/CYTOLOGY ORD ERABLES Final Result [facility] [id number] [address] [place] [address] from Last 3 Months or Most Recently Relevant to Health Maintenance Insurance [facility]AN OF [facility] [id number] [facility] PLAN [facility] [id number]
[2025-02-28] MEDS: KETOROLAC 15 MG/ML VIAL (*BKC) IV PUSH (11:12)
[2025-02-28] MEDS: SODIUM CHLORIDE 0.9% IV 1,000 ML 999 ML IV CONT (11:12)
[2025-02-28] MEDS: ONDANSETRON INJ 4 MG/2 ML VIAL IV PUSH (11:12)
[2025-02-28 13:00] VITALS: BP 118/78; PULSE 88; RESP 18; O2SAT 100
== END 2025-02-28 14:29 | disposition home or self-care (01) ==
PROVIDERS: Emergency Provider Physician Assistant; PCP Family Medicine
DX: K85.90 Acute pancreatitis without necrosis or infection, unspecified (principal); R93.89 Abnormal findings on diagnostic imaging of other specified body structures; Z79.3 Long term (current) use of hormonal contraceptives
CPT/HCPCS: 36415; 74177; 76830; 76856; 80053; 81001; 81025; 83690; 85025; 96361; 96374; 96375; 99284; J1885; J2405; J7030; Q9967

== ENCOUNTER 2025-03-06 10:36 | Emergency (ER) | payer MEDICAID, SELFPAY ==
--- NOTE | ~2025-03-06 | CT_ITS ---
CT abdomen pelvis w con Clinical History: abdominal pain . Comparison: CT abdomen pelvis and pelvic ultrasound 02/28/2025 Technique: Axial images lung bases to symphysis pubis IV contrast information not listed in PACS Coronal, sagittal reformats CT images acquired with automatic exposure control for dose reduction DLP: 187 mGy-cm Findings: Lung bases: Clear. Visualized heart and pericardium: Unremarkable. Liver: Periportal edema, probably overhydration. Gallbladder: Mild nonspecific wall thickening. Spleen: Unremarkable. Pancreas: Unremarkable. Adrenal glands: Unremarkable. Kidneys: Right kidney- No hydronephrosis. No renal stones. Left kidney- No hydronephrosis. No renal stones. Distal esophagus/stomach: Unremarkable. Small bowel loops: Normal caliber and wall thickness. Colon: Normal caliber and wall thickness. Normal RLQ appendix. Nodes: No enlarged nodes. Peritoneum: No ascites. No free air. Probable minimal mesenteric edema Urinary bladder: Unremarkable. Uterus: Heterogeneous enhancement. No surrounding inflammation. Adnexa: No masses. Small pelvic free fluid. Bones: No acute bony abnormality. Soft tissues: Unremarkable. Aorta: No aneurysm or dissection. IVC: Unremarkable. Main portal vein/SMV/splenic vein: Patent. IMPRESSION: 1. No definite acute findings. Reviewed, dictated and finalized at location R.
[2025-03-06 10:52] VITALS: BP 130/81; PULSE 90; RESP 20; TEMP 36.6; O2SAT 100
[2025-03-06 11:08] LABS: Hematocrit 45.8 % (37.0-47.0); Hemoglobin 14.6 g/dL (12.0-15.0); Immature Granulocyte Percent A 0.3 % (0-0.5); Lymphocytes Absolute Auto 1.64 K/mm3 (0.9-3.2); Mean Corpuscular HGB Conc 31.9 g/dl (32-36); Mean Corpuscular Hemoglobin 28.6 pg (26-34); Mean Corpuscular Volume 89.8 fl (80-100); Nucleated Red Blood Cells Absolute Auto 0.000 K/mm3 (0.0-0.012); Nucleated Red Blood Cells Perc 0.0 % (0.0-0.2); Platelet Count Result 297 k/mm3 (150-375); Red Blood Count 5.10 M/mm3 (4.2-5.4); White Blood Count 3.7 K/mm3 (4.5-10.0)
--- OUTSIDE RECORDS SUMMARY | 2025-03-06 11:09 | XMS_ITS | Clinical Summary ---
Author Organization [facility] [address] [facility] Address [address] [facility] [place] [address] Care Team Providers Care Hydro Technician Name Role Phone Unavailable Primary Care Provider [...] PERTUSSIS, HEPATITIS B, AND INACTIVATED POLIOVIRUS VACCINE ([id number]), 0.5ML, IM 06/10/2003,03/10/2003,01/07/2003 (PREVNAR 13)(6 WKS UP) [...] See Scanned Report 08/29/2024 8:58 AM CDT [facility] [employer] [facility] Genital SWAB OF ENDOCERVIX / Unknown Collection / Unknown 08/22/2024 11:28 AM CDT 08/23/2024 11:28 AM CDT Kristina Babin ORTHOPAEDIC DOCTOR PATHOLOGY/CYTOLOGY ORD ERABLES Final Result [facility] [employer] [facility] [id number] [address] [place] [address] from Last 3 Months or Most Recently Relevant to Health Maintenance Insurance [facility] PLAN OF [facility] [id number] [facility] PLAN [facility] [place] [id number]
--- OUTSIDE RECORDS SUMMARY | 2025-03-06 11:09 | XMS_ITS | Encounter Summary ---
Author Organization [facility] Healthcare Address [address] [place] [address] Care Team Providers Care Centrifugal Chiller Technician Name Role Phone Brigid Mcknight MD Primary Care Provider [phone] Encounter Details Date Type Department Care Team (Late st Contact Info) Description 02/14/2025 Results Follow-Up [facility] Family Medicine [address] [facility] [address] [place] [address] [place] [address] [place] [address] [address] [place] [address] Trichomonas vaginalis PCR Vaginal, N. 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
--- OUTSIDE RECORDS SUMMARY | 2025-03-06 11:09 | XMS_ITS | Encounter Summary ---
Author Organization [facility] Healthcare Address [address] [place] [address] Care Team Providers Care Bessemer Regulator Name Role Phone Brigid Mcknight MD Primary Care Provider [phone] Reason for Visit * Reason Onset Date Comments NAVEED Questions 03/03/2025 Encounter Details Date Type Department Care Team (Late st Contact Info) Description 03/03/2025 Telephone [facility] Family Medicine [address] [place] [phone] Brigid Mcknight MD [address] [place] [address] NAVEED Questions Social History Tobacco Use Types Packs/Day Years [...] on file 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
--- OUTSIDE RECORDS SUMMARY | 2025-03-06 11:09 | XMS_ITS | Encounter Summary ---
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 She is crying and and reports severe abdominal pain all over pt states PCP told her she put labs in the computer for her to have drawn at [facility]. Pt was unable to find the labs to print them off. She states she went to the ED Monday and was told she has Pancreatitis and free floating fluid in her abdomen. She was given unknown pain meds and told to stay on a liquid diet. She states the pain medication is not working. Disposition Go to ED Now Disposition per guideline: GO TO ED NOW. Pt verbalized understanding. Routing to office to notify pt advised to go to ED due to severe abdominal pain. Reason for Disposition SEVERE abdominal pain (e.g., excruciating) No Initial Assessment on file. No Additional Information on file. Protocols Used Abdominal Pain - [id number] * Telephone Encounter - Jessica Shanks RN - 03/06/2025 10:27 AM CDT Regarding: severe abdominal pain, vomiting (pancreatitis) ----- Message from September sent at 03/06/2025 10:27 AM CDT ----- Symptom Based Call Chief Complaint(s): severe abdominal pain, vomiting (pancreatitis) Duration: 2 weeks, today What type of symptom(s) is the patient experiencing? Red Flag. Is the patient concerned they are experiencing a medical emergency requiring an ambulance? No Additional Comments: on way to hospital because of the pain. Was told she had labs ordered and never found them to have them drawn. Not sure what to do. The pain is so bad and the nausea has become out of hand. She don't know what to do, she has not even been able to eat. Does message need to be routed? Yes-Action Needed documented in this encounter Plan of Treatment Not on file documented as of this encounter Visit Diagnoses Not on filedocumented in this encounter Care Teams Pharmacists Relationship Specialty Start Date End Date Brigid Mcknight MD PCP - General Family Medicine 01/04/21 documented as of this encounter
--- OUTSIDE RECORDS SUMMARY | 2025-03-06 11:09 | XMS_ITS | Clinical Summary ---
Author Organization [facility] Address [address] [place] [address] Care Team Providers Care Riverboat Captain Name Role Phone Laury Ybarra MD Primary Care Provider [phone] Source Comments [facility],non-owned Affiliates and Associated Physician Practices is amultiple site organization consisting of ambulatory clinics and hospital sitesin [place], [place], [place] and [place]. This disclosure is being madepursuant to the Care Everywhere program and may not contain all information available regarding this patient. 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
--- OUTSIDE RECORDS SUMMARY | 2025-03-06 11:09 | XMS_ITS | Clinical Summary ---
Author Organization [facility] at the [facility] Office Center Address [address] [place] [address] Care Team Providers Care Hand Sprayer Name Role Phone Brigid Mcknight MD Primary Care Provider [phone] [phone] Allergies Active Allergy Reactions Criticality Noted Date Comments Amoxicillin Rash Medium 01/09/2021 Medications Nurtec ODT tablet,disinteg ratingIndicatio ns:Migraine without aura and without status migrainosus, not intractable Take 1 tablet (75 mg total) by mouth every other day as needed (migraine) 8 tablet 5 11/18/19 23 Active Additional Information Patient not taking.Reported on 03/04/2025 albuterol HFA (PROVENTIL HFA,VENTOLIN HFA,PROAIR HFA) 90 mcg/actuation inhalerIndicati ons:Acute non-recurrent frontal sinusitis,Wheez ing Inhale 1-2 puffs every 6 (six) hours as needed for wheezing for up to 10 days 8 g 3 08/29/19 25 Active Additional Information Patient not taking.Reported on 03/04/2025 loratadine (CLARITIN) 10 mg tablet Take 1 tablet (10 mg total) by mouth daily as needed Active desvenlafaxine ER (PRISTIQ) 25 mg tablet extended release 24 hr 24 hr tabletIndicatio ns:major depressive disorder Take 1 tablet (25 mg total) by mouth daily 30 tablet 02/14/20 25 Active glycopyrrolate (ROBINUL) 1 mg tabletIndicatio ns:Excessive sweating Take 1 tablet (1 mg total) by mouth 2 (two) times a day 180 tablet 02/14/20 25 Active hydrOXYzine (ATARAX) 10 mg tabletIndicatio ns:Generalized anxiety disorder Take 1 tablet (10 mg total) by mouth daily as needed for itching 30 tablet 02/14/20 25 Active hydrOXYzine (ATARAX) 10 mg tabletIndicatio ns:Generalized anxiety disorder Take 1 tablet (10 mg total) by mouth daily as needed for itching 30 tablet 03/14/20 24 025 Discontinu ed(Reorder ) venlafaxine XR (EFFEXOR-XR) 75 mg 24 hr capsuleIndicati ons:Generalized anxiety disorder Take 1 capsule (75 mg total) by mouth daily Take with food. 90 capsule 4 06/24/19 25 025 Discontinu ed(Alterna te therapy) glycopyrrolate (ROBINUL) 1 mg tabletIndicatio ns:Excessive sweating Take 1 tablet (1 mg total) by mouth 2 (two) times a day 180 tablet 01/14/20 25 025 Discontinu ed(Reorder ) metroNIDAZOLE (FLAGYL) 500 mg tablet Take 1 tablet (500 mg total) by mouth 2 (two) times a day for 7 days 14 tablet 02/15/20 25 025 Active Problems Problem Noted Date Diagnosed Date LUQ abdominal pain 03/04/2025 Assessment & Plan (03/04/2025 10:11 AM CDT): Periumbilical abdominal pain 03/04/2025 Assessment & Plan (03/04/2025 10:11 AM CDT): Acute diarrhea 03/04/2025 Assessment & Plan (03/04/2025 10:11 AM CDT): Intractable migraine without aura and with status migrainosus 06/24/2024 Assessment & Plan (06/24/2024 12:21 PM BATTERY CONTAINER INSPECTOR): Chronic Stable Cont nurtec PRN Moderate episode of recurrent major depressive d isorder 03/14/2024 Overview (03/14/2024): Uncontrolled. She had failed Lexaprol and Zoloft due to side effects. Start Pristiq 25mg daily. Follow up in 1 month to reassess. Assessment & Plan (06/24/2024 12:26 PM BATTERY CONTAINER INSPECTOR): Chronic Improving Increase venlafaxine xr to 75mg daily Failed meds: zoloft, lexapro Excessive sweating 02/15/2021 Assessment & Plan (06/24/2024 12:20 PM BATTERY CONTAINER INSPECTOR): Chronic Stable Cont robinul Assessment & Plan (02/24/2022 6:18 AM CDT): Stable Cont robinul Assessment & Plan (12/16/2021 10:09 AM CDT): Stable Cont robinul Assessment & Plan (09/28/2021 1:28 PM CDT): Stable Cont robinul Assessment & Plan (02/23/2021 5:22 PM CDT): Chronic, uncontrolled Start robinul Generalized anxiety disorder 01/09/2021 Assessment & Plan (06/24/2024 12:21 PM BATTERY CONTAINER INSPECTOR): Chronic Improving Increase venlafasine to 75mg daily [...] Plan (09/28/2021 1:27 PM CDT): New Order priti swanson Encounters Date Type Department Care Team Description 03/06/2025 Nurse Triage [address] [place] [phone] Brigid Mcknight MD 03/04/2025 10:00 AM CDT Telemedicine [address] [place] [phone] Brigid Mcknight MD LUQ abdominal pain (Primary Dx); Periumbilical abdominal pain; Acute diarrhea 03/03/[address] [place] [phone] Brigid Mcknight MD NAVEED Questions 02/14/2025 Results Follow-Up [address] [place] [phone] Tasneem Mccoy, CAS Trichomonas vaginalis PCR Vaginal, N. gonorrhoeae/C. trachomatis Amplification Vaginal, Vaginitis panel Vaginal 02/13/2025 4:27 PM CDT - 02/13/2025 11:59 PM CDT Hospital Encounter [facility] [address] [place] [id number] Vaginal odor; Vaginal discharge Discharge Disposition: Discharge to home or self care 02/13/2025 9:30 AM CDT Office Visit [address] [place] [phone] Tasneem Mccoy NP Vaginal odor (Primary Dx); [...] Preser vative Free, Intramuscular 03/14/2024 Influenza, Unspecified 03/04/2025(Deferr ed: Patient Refused),03/05/2023(Deferred: Patient Refused),03/05/2022,03/05/2021 MMR 10/04/2007,03/18/2004 Meningococcal B, OMV [...] on file Legal Sex Female 4:15 PM BATTERY CONTAINER INSPECTOR Gender Identity Not on file Sexual Orientation [...] - - Weight 57.2 kg (126 lb 1.7 oz) 03/04/2025 10:01 AM CDT Height 165.1 cm (5' 5) 03/04/2025 10:01 AM CDT Body Mass Index 20.98 03/04/2025 10:01 AM CDT Plan of Treatment Health Maintenance [...] 9:47 AM CDT) C. trachomatis Not Detected [facility] Comment:Testing performed by : [facility], [address] [facility], [place]., [address] N. gonorrhoeae Not Detected [facility] Comment: Interpretive Data This assay detects Chlamydia trachomatis and Neisseria gonorrhoeae by nucleic acid amplification testing (NAAT). This assay has been cleared by the [place] Food and Drug administration. The performance characteristics of this test have been verified by the [facility] Molecular Infectious Disease laboratory. The performance characteristics of this test have not been evaluated in individuals less than 14 years of age. Current Interpretive Data was last revised on 2023. Testing performed by: [facility], [address] [place]., [address] Vaginal 02/13/2025 9:47 AM CDT 02/13/2025 7:58 PM CDT Tasneem Mccoy NP LAB MICROBIOLOGY - GENERAL [facility] Final Result Performing Organization Address [facility] de Phone Number [address] [address] [facility] * Trichomonas vaginalis PCR Vaginal (02/13/2025 9:47 AM CDT) [facility] Trichomonas DNA Not Detected [facility] Comment: Interpretive Data This assay detects Trichomonas vaginalis by nucleic acid amplification testing (NAAT). This assay has been cleared by the [place] Food and Drug administration. The performance characteristics of this test have been verified by the [facility] Molecular Infectious Disease laboratory. The performance of this test has not been evaluated in individuals less than 18 years of age. Current Interpretive Data was last revised on 2023. Testing performed by: [facility], [address] [place]., [address] Vaginal 02/13/2025 9:47 AM CDT 02/13/2025 7:58 PM CDT Tasneem Mccoy NP LAB MICROBIOLOGY - [facility] Final Result Performing Organization Address [facility] de Phone Number [address] [address] [facility] * (ABNORMAL) Vaginitis panel Vaginal (02/13/2025 9:47 AM CDT) Bacterial Vaginosis Detected(A) Not Detected Comment:The BV organism targ ets of this test can be commensal in women; results should be considered in conjunction with clinical presentation to determine the disease status. Lashanda group Not Detected Not Detected [facility] Lashanda glabrata/ krusei Not Detected Not Detected [facility] Trichomonas DNA Not Detected Not Detected [facility] Vaginal 02/13/2025 9:47 AM CDT 02/13/2025 5:18 PM CDT Narrative [facility] - 02/13/2025 6:[address] PM [address] [employer] [address] Xpert Xpress MVP test detects DNA targets [...] this test have been verified by the [facility]. us Tasneem Mccoy NP LAB MICROBIOLOGY - GENERAL [facility] Final Result [facility] [address] [facility] [place] [address] from Last 3 Months Insurance [facility] Care Teams Hand Sprayer Relationship Specialty Start Date End Date Brigid Mcknight MD PCP - General Family Medicine 01/04/21"
[2025-03-06 11:14] LABS: Add Urine Microscopic? YES; Appearance Urine Clear (Clear); Glucose Urine UA Negative (Negative); Leukocyte Esterase Ur Negative LEU/UL (Negative); Nitrate Urine Negative (Negative); Non Pathogenic Casts 0-2; Specific Grav Ur 1.027 (1.001-1.035)
[2025-03-06 11:18] VITALS: BP 121/86; PULSE 75; RESP 14; O2SAT 100
[2025-03-06 11:20] LABS: BEDSIDEPREGUCG Negative (Negative)
[2025-03-06] MEDS: SODIUM CHLORIDE 0.9% IV 1,000 ML 999 ML IV CONT (11:24)
[2025-03-06] MEDS: ONDANSETRON INJ 4 MG/2 ML VIAL IV PUSH (11:26)
[2025-03-06] MEDS: FAMOTIDINE 20 MG/2 ML VIAL IV PUSH (11:26)
[2025-03-06] MEDS: KETOROLAC 30 MG/ML VIAL (*BKC) IV PUSH (11:26)
[2025-03-06 11:34] LABS: Alanine Aminotransferase 23 U/L (6-35); Albumin Level 4.4 g/dL (3.5-5.1); Alkaline Phosphatase 74 U/L (38-126); Anion Gap 7 mmol/L (4-12); Aspartate Amino Transferase 29 U/L (14-36); Bilirubin,Total 0.4 mg/dL (0.2-1.3); Blood Urea Nitrogen 10 mg/dL (7-17); Calcium 9.6 mg/dL (8.4-10.2); Carbon Dioxide 26 mmol/L (22-30); Chloride 102 mmol/L (98-107); Estimated CRCL calculation 93 ml/min; Estimated Glomerular Filt Rate > 60; Glucose 92 mg/dL (65-110); Lipase 73 U/L (23-300); Potassium 3.7 mmol/L (3.4-5.0); Sodium 135 mmol/L (137-145); Total Protein 8.2 g/dL (6.3-8.2)
--- OUTSIDE RECORDS SUMMARY | 2025-03-06 11:52 | XMS_ITS | Clinical Summary ---
Author Organization [facility] at the [facility] Office Center Address [address] [place] [address] Care Team Providers Care Outside B2B Sales Name Role Phone Brigid Mcknight MD Primary Care Provider [phone] Allergies Active Allergy Reactions Criticality Noted Date [...] 06/24/2024 Assessment & Plan (06/24/2024 12:[address] REPORTER): Chronic Stable Cont nurtec PRN Moderate episode of recurrent major depressive d isorder 03/14/2024 Overview (03/14/2024): Uncontrolled. She had failed Lexaprol and Zoloft due to side effects. Start Pristiq 25mg daily. Follow up in 1 month to reassess. Assessment & Plan (06/24/2024 12:[address] REPORTER): Chronic Improving Increase venlafaxine xr to 75mg daily Failed meds: zoloft, lexapro Excessive sweating 02/15/2021 Assessment & Plan (06/24/2024 12:[address] REPORTER): Chronic Stable Cont robinul Assessment & Plan (02/24/2022 6:18 AM CDT): Stable Cont robinul Assessment & Plan (12/16/2021 10:09 AM CDT): Stable Cont robinul Assessment & Plan (09/28/2021 1:28 PM CDT): Stable Cont robinul Assessment & Plan (02/23/2021 5:22 PM CDT): Chronic, uncontrolled Start robinul Generalized anxiety disorder 01/09/2021 Assessment & Plan (06/24/2024 12:[address] REPORTER): Chronic Improving Increase venlafasine to 75mg daily [...] Department Care Team Description 03/06/2025 Nurse Triage [address] [place] [phone] Briigd Mcknight MD 03/04/2025 10:00 AM CDT Telemedicine [address] [place] [phone] Brigid Mcknight MD LUQ abdominal pain (Primary Dx); Periumbilical abdominal pain; Acute diarrhea 03/03/[address] [place] [phone] Brigid Mcknight MD NAVEED Questions 02/14/2025 Results Follow-Up [address] [place] [phone] Tasneem Mccoy, CAS Trichomonas vaginalis PCR Vaginal, N. gonorrhoeae/C. trachomatis Amplification Vaginal, Vaginitis panel Vaginal 02/13/2025 4:27 PM CDT - 02/13/2025 11:59 PM CDT Hospital [facility] [address] [place] [address] Vaginal odor; Vaginal discharge Discharge Disposition: Discharge to home or self care 02/13/2025 9:30 AM CDT Office Visit [address] [place] [phone] Tasneem Mccoy NP Vaginal odor (Primary Dx); [...] on file Legal Sex Female 4:[address] REPORTER Gender Identity Not on file Sexual Orientation [...] 9:47 AM CDT) C. trachomatis Not Detected [facility] Comment:Testing performed by : [facility], [address] [facility], [place] [address] N. gonorrhoeae Not Detected [facility] Comment: Interpretive Data This assay detects Chlamydia trachomatis and Neisseria gonorrhoeae by nucleic acid amplification testing (NAAT). This assay has been cleared by the [place] Food and Drug administration. The performance characteristics of this test have been verified by the [facility] Molecular Infectious Disease laboratory. The performance characteristics of this test have not been evaluated in individuals less than 14 years of age. Current Interpretive Data was last revised on 2023. Testing performed by: [facility], [address] [place]., [address] Vaginal 02/13/2025 9:47 AM CDT 02/13/2025 7:58 PM CDT Tasneem Mccoy NP LAB MICROBIOLOGY - [facility] Final Result Performing Organization Address [facility] de Phone Number [address] [address] [facility] * Trichomonas vaginalis PCR Vaginal (02/13/2025 9:47 AM CDT) [facility] Trichomonas DNA Not Detected [facility] Comment: Interpretive Data This assay detects Trichomonas vaginalis by nucleic acid amplification testing (NAAT). This assay has been cleared by the [place] Food and Drug administration. The performance characteristics of this test have been verified by the [facility] Molecular Infectious Disease laboratory. The performance of this test has not been evaluated in individuals less than 18 years of age. Current Interpretive Data was last revised on 2023. Testing performed by: [facility], [address] [place]., [address] Vaginal 02/13/2025 9:47 AM CDT 02/13/2025 7:58 PM CDT Tasneem Mccoy NP LAB MICROBIOLOGY - [facility] Final Result Performing Organization Address [facility] de Phone Number [address] [address] [facility] * (ABNORMAL) Vaginitis panel Vaginal (02/13/2025 9:47 AM CDT) Bacterial Vaginosis Detected(A) Not Detected Comment:The BV organism targ ets of this test can be commensal in women; results should be considered in conjunction with clinical presentation to determine the disease status. Lashanda group Not Detected Not Detected [facility] Lashanda glabrata/ krusei Not Detected Not Detected [facility] Trichomonas DNA Not Detected Not Detected [facility] Vaginal 02/13/2025 9:47 AM CDT 02/13/2025 5:18 PM CDT Narrative [facility] - 02/13/2025 6:23 PM CDT The [employer] Xpert Xpress MVP test detects DNA targets [...] this test have been verified by the [facility]. us Tasneem Mccoy NP LAB MICROBIOLOGY - GENERAL [facility] Final Result [facility] [address] [facility] Department [place] [address] from Last 3 Months Insurance [facility] Care Teams Outside B2B Sales Relationship Specialty Start Date End Date Brigid Mcknight MD PCP - General Family Medicine 01/04/21
--- OUTSIDE RECORDS SUMMARY | 2025-03-06 11:52 | XMS_ITS | Clinical Summary ---
Author Organization [facility] Address [address] [facility] [place] [address] Care Team Providers Care Belly Packer Name Role Phone Laury Ybarra MD Primary Care Provider [phone] Source Comments [facility],non-owned Affiliates and Associated Physician Practices is amultiple site organization consisting of ambulatory clinics and hospital sitesin [place], [place], [place] and [place]. This disclosure is being madepursuant to the Care Everywhere program and may not contain all information available regarding this patient. 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
--- OUTSIDE RECORDS SUMMARY | 2025-03-06 11:52 | XMS_ITS | Encounter Summary ---
Author Organization [facility] Healthcare Address [address] [place] [address] Care Team Providers Care Conductor Sleeping Car Name Role Phone Brigid Mcknight MD Primary Care Provider [phone] Reason for Visit * Reason Onset Date Comments Abdominal Pain 03/06/2025 Encounter Details Date Type Department Care Team (Late st Contact Info) Description 03/06/2025 Nurse Triage [facility] Medical [facility] Family Medicine [address] [place] [phone] Brigid Mcknight MD [address] [place] [phone] Social History Tobacco Use Types Packs/Day [...] on file 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 She is crying and and reports severe abdominal pain all over pt states PCP told her she put labs in the computer for her to have drawn at [facility]. Pt was unable to find the labs [...] on file. Protocols Used Abdominal Pain - [id number] * Telephone Encounter - Jessica Shanks RN [...] on filedocumented in this encounter Care Teams Conductor Sleeping Car Relationship Specialty Start Date End Date Brigid Mcknight MD PCP - General Family Medicine 01/04/21 documented as of this encounter
--- OUTSIDE RECORDS SUMMARY | 2025-03-06 11:52 | XMS_ITS | Encounter Summary ---
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
--- OUTSIDE RECORDS SUMMARY | 2025-03-06 11:52 | XMS_ITS | Encounter Summary ---
Author Organization [facility] Healthcare Address [address] [place] [address] Care Team Providers Care Soda Fountain Manager Name Role Phone Brigid Mcknight MD Primary Care Provider [phone] Encounter Details Date Type Department Care Team (Late st Contact Info) Description 02/14/2025 Results Follow-Up [facility] Medical Group Family Medicine [address] [facility] [address] [place] [address] [place] [address] [place] [address] [address] [place] [address] Trichomonas vaginalis PCR Vaginal, N. 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
--- OUTSIDE RECORDS SUMMARY | 2025-03-06 11:52 | XMS_ITS | Clinical Summary ---
Author Organization [facility] Address [address] [facility] [place] [address] Care Team Providers Care Director Revenue Name Role Phone Unavailable Primary Care Provider [...] PERTUSSIS, HEPATITIS B, AND INACTIVATED POLIOVIRUS VACCINE ([id number]), 0.5ML, IM 06/10/2003,03/10/2003,01/07/2003 (PREVNAR 13)(6 WKS UP) [...] See Scanned Report 08/29/2024 8:58 AM CDT [facility] Genital SWAB OF ENDOCERVIX / Unknown Collection / Unknown 08/22/2024 11:28 AM CDT 08/23/2024 11:28 AM CDT Kristina Babin CREAM BEATER PATHOLOGY/CYTOLOGY ORD ERABLES Final Result [facility] [id number] [address] [place] [address] from Last 3 Months or Most Recently Relevant to Health Maintenance Insurance [facility] [employer] [facility] [place] [id number] [facility] [id number]
--- NOTE | 2025-03-06 12:37 | ED.GENADULT ---
HPI - General Adult General Chief complaint: Abdominal Pain Stated complaint: Abdominal pain Time Seen by Provider: 03/06/25 10:53 History of Present Illness HPI narrative: Cyndy Reddy is a 24-year-old female who presents today with reports of being diagnosed with pancreatitis 1 week ago was discharged home tolerating p.o. pain was getting better until today she says that her pain started to come back and she had an episode of vomiting while she was at work. She rates her pain 7/10. She states her last bowel movement was either today or yesterday. Related Data Home Medications ?Medication ?Instructions ?Recorded ?Confirmed ?Last Taken ?Type albuterol sulfate 90 mcg/actuation 1 inh inhalation QID PRN Adequate 04/19/19 08/01/19 Unknown History aerosol inhaler Ventilation levonorgestrel-ethinyl estradiol 1 tablet PO DAILY 04/19/19 08/01/19 Unknown History 0.1 mg-20 mcg tablet (Aviane) Allergies Allergy/AdvReac Type Severity Reaction Status Date / Time amoxicillin Allergy Intermediate Hives Verified 03/06/25 10:56 Review of Systems Review of Systems: All systems reviewed & are unremarkable except as noted in HPI and below PMFSH Past Medical History Medical History Anxiety Depression Surgical History Surgical History No pertinent past surgical history Social History Social History Smoking status: Never smoker Substance use type: marijuana Exam Narrative: GENERAL: Well-appearing, well-nourished, and in no acute distress. HEAD: Normocephalic, atraumatic. EYES: PERRLA and EOMI. ENT: Nares clear, no rhinorrhea or epistaxis. Mucous membranes moist. Oropharynx without tonsillar hypertrophy exudate or other lesions. NECK: Supple. No adenopathy or masses. No carotid bruits or JVD CHEST: Clear to auscultation. No respiratory distress. No wheezes rales or rhonchi HEART: Regular rate and rhythm. No murmur heard. Normal peripheral pulses. ABDOMEN: Soft, , nondistended, normal active bowel sounds. Tender to the left quadrant. EXTREMITIES: Normal range of motion. No edema. SKIN: Warm, dry, no rash. NEURO: No focal deficits. Alert and oriented x3. PSYCH: Normal mood and affect. Course Vital Signs Vital signs: Vital Signs Temperature 36.6 C 03/06/25 10:52 Pulse Rate 90 03/06/25 10:52 Respiratory Rate 20 03/06/25 10:52 Blood Pressure 130/81 03/06/25 10:52 Pulse Oximetry 100 03/06/25 10:52 Oxygen Delivery Room Air 03/06/25 10:52 Temperature 36.6 C 03/06/25 10:52 Pulse Rate 65 03/06/25 14:56 Respiratory Rate 14 03/06/25 14:56 Blood Pressure 107/82 03/06/25 14:56 Pulse Oximetry 10 L 03/06/25 14:56 Oxygen Delivery Room Air 03/06/25 10:52 Medical Decision Making MDM Narrative Medical decision making narrative: 24-year-old female who presents with history of pancreatitis who feels like she started to have symptoms returned today with some nausea vomited x1 and some left quadrant abdominal pain. Concern for acute pancreatitis, dehydration, gastroenteritis Plan to do labs and CT scan while treating her with IV fluids, Toradol, Pepcid and Zofran Cbc white blood cell 3.7, hemodynamically stable, CMP sodium 135 otherwise unremarkable lipase is 73, UA positive protein trace ketones 3+ blood and RBCs she is having vaginal bleeding currently test is negative CT abdomen pelvis is without any acute findings Patient re-evaluated states that she was starting to feel better but still has some abdominal pain I let her know that if we can get her pain and nausea under control she can likely go home with similar medications to take at home, as I updated her on her lab results and her CT finding. Patient given dicyclomine and Reglan and re-evaluated and states she is feeling much better she feels comfortable going home she is tolerating p.o. and she will be discharged home with continue dicyclomine as needed for pain and ondansetron for the nausea as needed. Encouraged to take on clear liquids over the next 24 hours and slowly advance diet as tolerated. Return precautions provided. Patient denies any a think further and is comfortable with this plan. Medical Records Medical records reviewed: Yes I reviewed the external patient's medical records. Vital Signs Vital Signs: Vital Signs Temperature 36.6 C 03/06/25 10:52 Pulse Rate 90 03/06/25 10:52 Respiratory Rate 20 03/06/25 10:52 Blood Pressure 130/81 03/06/25 10:52 Pulse Oximetry 100 03/06/25 10:52 Oxygen Delivery Room Air 03/06/25 10:52 Temperature 36.6 C 03/06/25 10:52 Pulse Rate 65 03/06/25 14:56 Respiratory Rate 14 03/06/25 14:56 Blood Pressure 107/82 03/06/25 14:56 Pulse Oximetry 10 L 03/06/25 14:56 Oxygen Delivery Room Air 03/06/25 10:52 Vitals reviewed Lab Data Lab results reviewed: Yes I reviewed the patient's lab results. 03/06/25 10:57 03/06/25 10:57 Labs: Lab Results 03/06/25 03/06/25 Range/Units 10:57 11:18 WBC 3.7 L (4.5-10.0) K/mm3 RBC 5.10 (4.2-5.4) M/mm3 Hgb 14.6 (12.0-15.0) g/dL Hct 45.8 (37.0-47.0) % MCV 89.8 (80-100) fl MCH 28.6 (26-34) pg MCHC 31.9 L (32-36) g/dl RDW 12.6 (11.5-14.5) % Plt Count 297 (150-375) k/mm3 MPV 9.1 (7.4-10.4) fl Immature Gran % (Auto) 0.3 (0-0.5) % Neut % (Auto) 47.3 (45.5-73.1) % Lymph % (Auto) 44.1 (18.3-44.2) % [place] % (Auto) 5.6 (2.6-8.5) % Eos % (Auto) 1.6 (0-4.4) % Baso % (Auto) 1.1 (0.2-1.2) % Lymph # (Auto) 1.64 (0.9-3.2) K/mm3 [place] # (Auto) 0.2 (0.1-0.6) K/mm3 Eos # (Auto) 0.1 (0-0.3) K/mm3 Baso # (Auto) 0.0 (0.0-0.1) K/mm3 Abs Immat Gran (auto) 0.01 (0.00-0.031) K/mm3 Absolute Neuts (auto) 1.8 (1.3-6.7) K/mm3 Absolute Nucleated RBC 0.000 (0.0-0.012) K/mm3 Nucleated RBC % 0.0 (0.0-0.2) % Sodium 135 L (137-145) mmol/L Potassium 3.7 (3.4-5.0) mmol/L Chloride 102 (98-107) mmol/L Carbon Dioxide 26 (22-30) mmol/L Anion Gap 7 (4-12) mmol/L BUN 10 (7-17) mg/dL Creatinine 0.71 (0.7-1.0) mg/dL Estim Creat Clear Calc 93 ml/min Estimated GFR > 60 (59 - ) Glucose 92 (65-110) mg/dL Calcium 9.6 (8.4-10.2) mg/dL Total Bilirubin 0.4 (0.2-1.3) mg/dL AST 29 (14-36) U/L ALT 23 (6-35) U/L Alkaline Phosphatase 74 (38-126) U/L Total Protein 8.2 (6.3-8.2) g/dL Albumin 4.4 (3.5-5.1) g/dL Lipase 73 (23-300) U/L Urine Color Yellow (Yellow) Urine Appearance Clear (Clear) Urine pH 6.5 (5.0-9.0) Ur Specific [place] 1.027 (1.001-1.035) Urine Protein 1+ H (Negative) mg/dL Urine Glucose (UA) Negative (Negative) mg/dL Urine Ketones Trace H (Negative) mg/dL Ur Blood (Man) 3+ H (Negative) Urine Nitrate Negative (Negative) Urine Bilirubin Negative (Negative) Urine Urobilinogen 0.2 (<2.0) mg/dL Leukocyte Esterase Rfl Negative (Negative) COLIN/UL Urine RBC 3-5 H (0-2) /hpf Urine WBC 0-5 (0-3) /hpf Ur Squamous Epith Cells Occasional (Few) /hpf Urine Bacteria None seen /hpf Urine Casts 0-2 POC Urine HCG, Qual Negative (Negative) Imaging Data Radiologist's impression: Impressions Abdomen/Pelvis CT 03/06/25 11:56 IMPRESSION: 1. No definite acute findings. Discharge Plan Discharge Clinical Impression: Nausea & vomiting Qualifiers: Vomiting type: unspecified Qualified Code(s): R11.2 - Nausea with vomiting, unspecified Patient Disposition: Home Condition: Stable Instructions: Antibiotic Form Additional Instructions: Continue to take the dicyclomine as ordered for pain if needed may also take the on ondansetron on as ordered for nausea, continue clear liquid diet for the next 24 hours slowly advance to a bland diet please call the follow-up with your primary care doctor in a week to ensure you are improving. If he should develop any new or worsening symptoms otherwise return to the emergency department. Patient Language: Czech Prescriptions: New dicyclomine 10 mg capsule 10 mg PO TID Qty: 30 0RF ondansetron 4 mg tablet,disintegrating 4 mg PO Q8H PRN (Reason: nausea and vomiting) Qty: 14 0RF No Action levonorgestrel-ethinyl estrad [Aviane] 0.1-20 mg-mcg tablet 1 tablet PO DAILY albuterol sulfate 90 mcg/actuation Hfa Aerosol Inhaler 1 inh INHALATION QID PRN (Reason: Adequate Ventilation) cetirizine-pseudoephedrine [Zyrtec-D] 5-120 mg tablet extended release 12 hr 1 tablet PO Q12H PRN (Reason: nasal congestion) Qty: 12 0RF dextromethorphan-guaifenesin [Mucinex DM] 60-1,200 mg tablet extended release 12 hr 1 tablet PO Q12H PRN (Reason: cough) Qty: 12 0RF fluticasone propionate [Flonase Allergy Relief] 50 mcg/actuation spray,suspension 2 spray NASAL DAILY 14 Days Qty: 15.8 0RF Rx Instructions: administer into each nostril promethazine-DM 6.25-15 mg/5 mL syrup 5 ml PO Q4-6H PRN (Reason: cough) Qty: 120 0RF fluticasone propionate [Flonase Allergy Relief] 50 mcg/actuation spray,suspension 1 spray NASAL Q12H 10 Days Qty: 15.8 0RF Rx Instructions: administer into each nostril hydrocodone-acetaminophen 5-325 mg tablet 1 tablet PO Q6H PRN (Reason: pain) Qty: 20 0RF ibuprofen 600 mg tablet 600 mg PO TID Qty: 14 0RF Follow-up/Referrals: Juan Luis,MD Brigid [Primary Care Provider] - 1 Week Stand Alone Forms: Work/School Release IP Time of Disposition: 14:46
[2025-03-06] MEDS: METOCLOPRAMIDE HCL INJ 10 MG/2 ML VIAL IV PUSH (13:22)
[2025-03-06] MEDS: DICYCLOMINE HCL INJ 20 MG/2 ML VIAL IM (13:22)
[2025-03-06 13:28] VITALS: BP 101/69; PULSE 67; RESP 15; O2SAT 100
[2025-03-06 14:56] VITALS: BP 107/82; PULSE 65; RESP 14; O2SAT 10
== END 2025-03-06 14:57 | disposition home or self-care (01) ==
PROVIDERS: Emergency Medicine; Emergency Provider Nurse Practitioner Family; PCP Family Medicine
DX: R11.2 Nausea with vomiting, unspecified (principal); Z79.3 Long term (current) use of hormonal contraceptives
CPT/HCPCS: 36415; 74177; 80053; 81001; 81025; 83690; 85025; 96361; 96372; 96374; 96375; 99284; J0500; J1885; J2405; J2765; J7030; Q9967